=== PATIENT | female | born 1985 | race Asian ===

== ENCOUNTER 2016-03-29 20:26 | Emergency (ER) | payer OTHER ==
[2016-03-29 20:44] VITALS: BMI 23.9
[2016-03-29] MEDS ORDERED: SODIUM CHLORIDE 1,000 ML IV STA (20:55)
[2016-03-29] MEDS ORDERED: ONDANSETRON 4 MG/2 ML VIAL IVPUSH ONE (20:55)
--- NOTE | 2016-03-29 20:55 | PDOC ---
History of Present Illness - History of Present Illness Initial Comments: 03/29/16 21:10 Patient is a 30 year old female with no significant medical hx who is presenting to the ED with two days of fever, chills, hot/cold flashes, nausea, and vomiting since yesterday. Today the patient had a fever of 102.5. She went to her PCP who started the patient on Tamiflu. The patient came to the ED tonight because she is unable to keep anything down. Surgical hx: Appendectomy PCP: Raisa Tellez MD <Dimple Kelly - Last Filed: 03/29/16 21:10> <Angelica Younger - Last Filed: 03/29/16 23:56> - General Chief Complaint: SIRS, Suspected/Possible Stated Complaint: CHEST PAIN/FEVER/VOMITING Time Seen by Provider: 03/29/16 20:45 Past History <Dimple Kelly - Last Filed: 03/29/16 21:10> - Past Medical History Other medical history: high prolactin levels - Psycho/Social/Smoking Cessation Hx Suicidal Ideation: No Smoking History: Never smoked <Angelica Younger - Last Filed: 03/29/16 23:56> - Past Medical History Allergies/Adverse Reactions: Allergies Allergy/AdvReac Type Severity Reaction Status Date / Time No Known Allergies Allergy Verified 03/29/16 20:44 Home Medications: Ambulatory Orders Ondansetron [Zofran Odt -] 4 mg SL TID #12 od.tablet 03/29/16 Review of Systems - Review of Systems Comments:: 03/29/16 21:35 CONSTITUTIONAL: Preset: fever, chills, hot/cold flashes, body aches, diaphoresis Absent: generalized weakness, malaise, loss of appetite HEENT: Absent: rhinorrhea, nasal congestion, throat pain, throat swelling, difficulty swallowing, mouth swelling, ear pain, eye pain, visual changes CARDIOVASCULAR: Absent: chest pain, syncope, palpitations, irregular heart rate, lightheadedness , peripheral edema RESPIRATORY: Present: cough Absent: shortness of breath, dyspnea with exertion, orthopnea, wheezing, stridor , hemoptysis GASTROINTESTINAL: Present: nausea, vomiting Absent: abdominal pain, abdominal distension, diarrhea, constipation, melena, hematochezia GENITOURINARY: Absent: dysuria, frequency, urgency, hesitancy, hematuria, flank pain, genital pain MUSCULOSKELETAL: Absent: myalgia, arthralgia, joint swelling SKIN: Absent: rash, itching, pallor HEMATOLOGIC/IMMUNOLOGIC: Absent: easy bleeding, easy bruising, lymphadenopathy, frequent infections ENDOCRINE: Absent: unexplained weight gain, unexplained weight loss, heat intolerance, cold intolerance NEUROLOGIC: Absent: headache, focal weakness or paresthesia, dizziness, unsteady gait, seizure, mental status changes, bladder or bowel incontinence. PSYCHIATRIC: Absent: anxiety, depression, suicidal or homicidal ideation, hallucinations <Dimple eKlly - Last Filed: 03/29/16 21:10> *Physical Exam - Vital Signs Last Vital Signs Temp Pulse Resp BP Pulse Ox 99.6 F 114 H 18 106/70 97 03/29/16 20:40 03/29/16 20:40 03/29/16 20:40 03/29/16 20:40 03/29/16 20:40 - Physical Exam Comments: 03/29/16 21:38 GENERAL: Well developed, well nourished. Awake and alert. No acute distress. HEENT: Normocephalic, atraumatic. PERRLA, EOMI. No conjunctival pallor. Sclera are non- icteric. Moist mucous membranes. Oropharynx is clear. NECK: Supple. Full ROM. No JVD. Carotid pulses 2+ and symmetric, without bruits. No thyromegaly. No lymphadenopathy. CARDIOVASCULAR: Tachycardic. No murmurs, rubs, or gallops. Distal pulses are 2+ and symmetric. PULMONARY: No evidence of respiratory distress. Lungs clear to auscultation bilaterally. No wheezing, rales or rhonchi. ABDOMINAL: Soft. Non-tender. Non-distended. No rebound or guarding. No organomegaly. Normoactive bowel sounds. MUSCULOSKELETAL: Normal range of motion at all joints. No bony deformities or tenderness. No CVA tenderness. EXTREMITIES: No cyanosis. No clubbing. No edema. No calf tenderness. SKIN: Warm and dry. Normal capillary refill. No rashes. No jaundice. NEUROLOGICAL: Alert, awake, appropriate. Cranial nerves 2-12 intact. Normal speech. Gait is normal without ataxia. PSYCHIATRIC: Cooperative. Good eye contact. Appropriate mood and affect. <Dimple Kelly - Last Filed: 03/29/16 21:10> - Vital Signs Last Vital Signs Temp Pulse Resp BP Pulse Ox 99.6 F 114 H 18 106/70 97 03/29/16 20:40 03/29/16 20:40 03/29/16 20:40 03/29/16 20:40 03/29/16 20:40 <Angelica Younger - Last Filed: 03/29/16 23:56> ED Treatment Course - LABORATORY CBC & Chemistry Diagram: 03/29/16 21:45 03/29/16 21:00 <Angelica Younger - Last Filed: 03/29/16 23:56> *DC/Admit/Observation/Transfer - Attestations Scribe Attestion: 03/29/16 21:41 Documentation prepared by Dimple Kelly, acting as medical cost consultant for Angelica Younger MD. <Dimple Kelly - Last Filed: 03/29/16 21:10> <Angelica Younger - Last Filed: 03/29/16 23:56> Diagnosis at time of Disposition: Influenza Nausea and vomiting Qualifiers: Vomiting type: unspecified Vomiting Intractability: non-intractable Qualified Code(s): R11.2 - Nausea with vomiting, unspecified - Discharge Dispostion Disposition: HOME Condition at time of disposition: Stable - Prescriptions Prescriptions: Ondansetron [Zofran Odt -] 4 mg SL TID #12 od.tablet - Referrals Referrals: Raisa Tellez MD [Primary Care Provider] - - Patient Instructions Printed Discharge Instructions: DI for Fever (Symptom) -- Adult, DI for Diarrhea and Traveler's Diarrhea -- Adult, DI for Vomiting -- Adult Additional Instructions: please rest take tylenol or motrin for fever,body aches drink water use zofran for vomiting return for worsening symptoms
[2016-03-29] MEDS ORDERED: ONDANSETRON 4 MG/2 ML VIAL ONE (21:04)
[2016-03-29 21:26] VITALS: BP 104/73; PULSE 94; TEMP 99
[2016-03-29 21:49] LABS: ALBUMIN 3.6 g/dl (3.4-5.0); ANION GAP 7 (8-16); BILIRUBIN,TOTAL 0.4 mg/dL (0.2-1.0); CALCIUM 8.2 mg/dL (8.5-10.1); CO2 27 mmol/L (21-32); CREATININE 0.7 mg/dL (0.55-1.02); GLUCOSE,RANDOM 106 mg/dL (74-106); SGOT/AST 27 U/L (15-37); SGPT/ALT 39 U/L (12-78)
[2016-03-29 21:50] LABS: ALK PHOS 58 U/L (45-117)
[2016-03-29 21:58] LABS: BASOPHIL 0.4 % (0-2.0); MCH 27.8 pg (25.7-33.7); MCHC 32.9 g/dl (32.0-36.0); MEAN CELL VOLUME 84.4 fl (80-96); NEUTROPHILS 79.8 % (42.8-82.8); PLATELET COUNT 284 K/MM3 (134-434); RDW 12.7 % (11.6-15.6); WHITE BLOOD COUNT 9.6 K/mm3 (4.0-10.0)
[2016-03-29] MEDS ORDERED: ACETAMINOPHEN 1000 MG/100 ML VIAL (NON FORMULARY) IVPB ONE (21:59)
[2016-03-29] MEDS ORDERED: ACETAMINOPHEN INJECTION 100 ML IVPB ONE (22:01)
[2016-03-29 22:07] LABS: URINE APPEARANCE SLCLOUDY; URINE BILIRUBIN NEGATIVE (NEGATIVE); URINE COLOR LTYELLOW; URINE GLUCOSE (UA) NEGATIVE (NEGATIVE); URINE KETONE NEGATIVE (NEGATIVE); URINE LEUK ESTERASE NEGATIVE (NEGATIVE); URINE NITRITE NEGATIVE (NEGATIVE); URINE PROTEIN NEGATIVE (NEGATIVE); URINE UROBILINOGEN NEGATIVE E.U./dl (0.2-1.0)
[2016-03-29 22:09] LABS: URINE BLOOD 1+ (NEGATIVE)
[2016-03-29 22:10] LABS: URINE BACTERIA FEW /hpf (NONE SEEN); URINE MUCUS FEW; URINE RBC 8 /hpf (0-3); URINE WBC 2 /hpf (3-5)
--- NOTE | 2016-03-30 09:52 | EKG ---
Test Reason : Blood Pressure : / mmHG Vent. Rate : 104 BPM Atrial Rate : 104 BPM P-R Int : 122 ms QRS Dur : 082 ms QT Int : 330 ms P-R-T Axes : 051 090 035 degrees QTc Int : 433 ms SINUS TACHYCARDIA BORDERLINE ECG NO PREVIOUS ECGS AVAILABLE Confirmed by ANSHU YEE MD ([id number]) on 03/30/2016 9:52:26 AM Referred By: Overread By: ANSHU YEE MD
== END 2016-03-30 00:09 | disposition home or self-care (01) ==
LOC: JER 20:26
PROC: 3E033NZ Introduction of Analgesics, Hypnotics, Sedatives into Peripheral Vein, Percutaneous Approach (ICD-10-PCS; principal; 2016-03-29)
PROC: 3E033GC Introduction of Other Therapeutic Substance into Peripheral Vein, Percutaneous Approach (ICD-10-PCS; 2016-03-29)
DX: R11.2 Nausea with vomiting, unspecified (principal)
CPT/HCPCS: 36415; 80053; 81003; 81015; 84703; 85025; 87804; 93005; 93010; 99285-25

== ENCOUNTER 2017-07-02 11:05 | Inpatient (IN) | payer OTHER ==
[2017-07-02 12:23] VITALS: BMI 30.9
[2017-07-02 12:24] LABS: BASO % 0.3 % (0-2.0); EOS % 0.8 % (0-4.5); HEMATOCRIT 31.9 % (32.4-45.2); HEMOGLOBIN 10.6 GM/dL (10.7-15.3); LYMPH % 19.7 % (8-40); MCH 28.2 pg (25.7-33.7); MCHC 33.3 g/dl (32.0-36.0); MEAN CELL VOLUME 84.7 fl (80-96); MEAN PLT VOLUME 8.9 fl (7.5-11.1); NEUT % 70.2 % (42.8-82.8); PLATELET COUNT 251 K/MM3 (134-434); RBC 3.76 M/mm3 (3.60-5.2); RDW 13.9 % (11.6-15.6); WHITE BLOOD COUNT 13.2 K/mm3 (4.0-10.0)
[2017-07-02 12:48] LABS: INR 0.97 (0.82-1.09)
[2017-07-02 12:51] LABS: ACTIVATED PTT 25.8 SECONDS (26.9-34.4)
[2017-07-02 13:02] LABS: ANION GAP 8 (8-16); BLOOD UREA NITROGEN 8 mg/dL (7-18); CALCIUM 8.3 mg/dL (8.5-10.1); CHLORIDE 105 mmol/L (98-107); CO2 22 mmol/L (21-32); GLUCOSE,RANDOM 71 mg/dL (74-106); POTASSIUM 4.2 mmol/L (3.5-5.1); SODIUM 135 mmol/L (136-145)
[2017-07-02 13:05] LABS: CREATININE 0.4 mg/dL (0.55-1.02)
[2017-07-02] MEDS ORDERED: AMPICILLIN SODIUM 2 GM VIAL ONE (13:59)
[2017-07-02] MEDS: ELECTROLYTE-148 SOLN 1,000 ML IV SCH (14:25)
[2017-07-02] MEDS ORDERED: OXYTOCIN 30 UNITS in 0.9% NS 30 UNIT/500 ML INFUS.BAG IVPB ONE (14:38)
[2017-07-02] MEDS ORDERED: AMPICILLIN - 2 GM in SODIUM CHLORIDE 100 ML IVPB ONE (14:45)
--- NOTE | 2017-07-02 14:54 | HP ---
Past Medical History - Primary Care Physician PCP:: Susanna Caro - Admission Chief Complaint: 31yo P0 @ 39.3wks with +ctx, no VB, no LOF, + FM History of Present Illness: 1. GBS positive for Antibiotics in active labor 2. Anemia - dilutional of 3. Low Vitamin D on supplement 4. 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 Resolved low-lying placenta 6. h/o abnormal PAP History Source: Patient, Medical Record Limitations to Obtaining History: No Limitations - Past Medical History ...: 1 ...Para: 0 ...Term: 0 ...: 0 ...Spon : 0 ...Induced : 0 ...Multiple Gestation: 0 ...EDC by Sono: 07/06/17 Heme/Onc: Yes: Anemia Endocrine: Yes: Other (Prolactinoma - neg MRI) - Past Surgical History Past Surgical History: Yes: None Hx Myomectomy: No Hx Transabdominal Cerclage: No - Smoking History Smoking history: Never smoked Have you smoked in the past 12 months: No - Alcohol/Substance Use Hx Alcohol Use: No History of Substance Use: reports: None - Social History History of Recent Travel: No Home Medications - Allergies Allergies/Adverse Reactions: Allergies Allergy/AdvReac Type Severity Reaction Status Date / Time No Known Allergies Allergy Verified 07/02/17 11:31 - Home Medications Home Medications: Ambulatory Orders Cholecalciferol (Vitamin D3) [Vitamin D] 2,000 unit PO DAILY 06/29/17 Vitamins (Sjr) - 1 tab PO DAILY 06/29/17 Family Disease History - Family Disease History Family Disease History: Diabetes: Father, Mother Review of Systems - Review of Systems Constitutional: reports: No Symptoms Eyes: reports: No Symptoms HENT: reports: No Symptoms Neck: reports: No Symptoms Cardiovascular: reports: No Symptoms Respiratory: reports: No Symptoms Gastrointestinal: reports: No Symptoms Genitourinary: reports: No Symptoms Breasts: reports: No Symptoms Reported Musculoskeletal: reports: No Symptoms Integumentary: reports: No Symptoms Neurological: reports: No Symptoms Endocrine: reports: No Symptoms Hematology/Lymphatic: reports: No Symptoms Psychiatric: reports: No Symptoms Physical Exam - Maternity Vital Signs: Vital Signs Temperature 98.2 F 07/02/17 14:00 Pulse Rate 119 H 07/02/17 14:00 Respiratory Rate 20 07/02/17 14:00 Blood Pressure 115/76 07/02/17 14:00 O2 Sat by Pulse Oximetry (%) Constitutional: Yes: Well Nourished, No Distress, Calm Eyes: Yes: WNL HENT: Yes: WNL Neck: Yes: WNL, Supple Cardiovascular: Yes: WNL, Regular Rate and Rhythm Lungs: Clear to auscultation Breast(s): Yes: WNL - Abdominal Exam/OB Fundal Height: 39 Number of Fetuses: Single Presentation: Vertex Contractions: Yes Regularity: Regular (Q 3-4min) Intensity: Mild/Mod Heart Rate (range): 130's +accels, no decells, Category 1 Heart Rate Location: Midline Category: I Accelerations: Uniform Decelerations: None - Vaginal Exam/OB Vaginal Bleediing: No, Bloody Show Speculum Exam: No Dilatation (cm): 3-4 Effacement (%): 75% Amniotic Membrane Status: Intact Presentation: Vertex/Position Station: -3 - Physical Exam Musculoskeletal: Yes: WNL Extremities: Yes: WNL Edema: No Integumentary: Yes: WNL Deep Tendon Reflex Grade: Normal +2 ...Motor Strength: WNL Psychiatric: Yes: WNL, Alert, Oriented - Labs Lab Results: CBC, BMP 07/02/17 11:45 07/02/17 11:45 Assessment/Plan 31yo P0 @ 39.3wks in early labor Admit to L&D for augmentation of labor IVF, Labs Ampicillin for GBS prophylaxis Pain management discussed for Stadol/Phenergan in early labor and for Epidural in active labor
[2017-07-02] MEDS ORDERED: OXYTOCIN 15 UNITS/ LR 250 ML 15 UNIT/250 ML INFUS.BAG IVPB SCH (15:00)
[2017-07-02] MEDS ORDERED: OXYTOCIN 30 UNITS in 0.9% NS 30 UNIT/500 ML INFUS.BAG IVPB SCH (15:15)
[2017-07-02] MEDS ORDERED: AMPICILLIN SODIUM 1 GM VIAL ONE ×2 (17:56→21:54)
[2017-07-02] MEDS: AMPICILLIN - 1 GM in SODIUM CHLORIDE 100 ML IVPB SCH ×2 (18:03→22:00)
[2017-07-02] MEDS ORDERED: PROMETHAZINE HCL 25 MG/1 ML VIAL ONE (23:38)
[2017-07-02] MEDS ORDERED: BUTORPHANOL TARTRATE 1 MG/ML VIAL ONE ×2 (23:38)
--- NOTE | 2017-07-02 23:40 | PN ---
Progress Note, Labor Vaginal Exam #1 Labor Exam Date: 07/03/17 Labor Exam Time: 23:30 Heart Rate (range): 140 Dilatation: 4cm Effacement (%): 80 Amniotic Membrane Status: Intact Presentation: Vertex/Position Station: -3 (31yo P0 @ 39.3 in early labor Category 1 FHR MF status reasuring Recommended to take Stadol for pain managment continue Pitocin augmentation)
[2017-07-03] MEDS ORDERED: BUTORPHANOL TARTRATE 1 MG/ML VIAL IVPUSH ONE (00:15)
[2017-07-03] MEDS ORDERED: PROMETHAZINE HCL 25 MG/1 ML VIAL IVPUSH ONE (00:15)
[2017-07-03] MEDS ORDERED: AMPICILLIN SODIUM 1 GM VIAL ONE ×2 (01:32→05:02)
[2017-07-03] MEDS ORDERED: FENTANYL/BUPIVACAINE/NS/PF - PCEA - 50 ML DISP.SYRIN EP ONE (01:32)
[2017-07-03] MEDS: AMPICILLIN - 1 GM in SODIUM CHLORIDE 100 ML IVPB SCH ×4 (02:00→16:15)
[2017-07-03] MEDS ORDERED: NALOXONE HCL 0.4 MG/ML VIAL IVPUSH PRN (02:07)
[2017-07-03] MEDS ORDERED: FENTANYL/BUPIVACAINE/NS/PF - PCEA - 50 ML DISP.SYRIN EP SCH (02:15)
[2017-07-03] MEDS ORDERED: OXYTOCIN 20 UNITS in 0.9% NS 40 UNIT/2,000 ML INFUS.BAG IV ONE (06:55)
[2017-07-03] MEDS ORDERED: LIDOCAINE HCL 1% PRESERVATIVE FREE - 30ML VIAL ONE (07:22)
[2017-07-03] MEDS: OXYTOCIN 20 UNITS in 0.9% NS 20 UNIT/1,000 ML INFUS.BAG IV SCH ×2 (07:25→09:23)
[2017-07-03] MEDS ORDERED: BISACODYL 10 MG SUPP.RECT RC PRN (08:09)
[2017-07-03] MEDS ORDERED: IBUPROFEN 600 MG TABLET (FP) PO PRN (08:09)
[2017-07-03] MEDS ORDERED: METHYLERGONOVINE MALEATE 0.2 MG/1 ML AMP IM PRN (08:09)
[2017-07-03] MEDS ORDERED: BENZOCAINE 28 GM HEMORRHOIDAL OINTMENT TP PRN (08:09)
--- NOTE | 2017-07-03 08:09 | PN ---
Delivery - Delivery Vaginal Delivery: No Problems Type of Anesthesia: Local, Epidural Episiotomy/Laceration: Perineal Extension/lac, 1st degree EBL (cc): 300 Delivery, Single - Stages of Labor Date 1st Stage Initiatied: 07/03/17 Time 1st Stage Initiated: 01:00 Date 2nd Stage Initiated: 07/03/17 Time 2nd Stage Initiated: 06:35 Date of Delivery: 07/03/17 Time of Delivery: 07:22 Date Placenta Delivered: 07/03/17 Time Placenta Delivered: 07:25 Placenta: Yes: Spontaneous - Condition of Infant Unemployment Examiner/Audio Narrator Present: No Gender: Female Position: OA (Cord around the neck x 1) - 1 Minute Total Score: 9 5 Minutes Total Score: 9 - Feeding Plan Initial Plan: Exclusive throughout hospitalization Benefits of Exclusively reinforced: Yes Remarks - Remarks Remarks: Uncomplicated delivery of head and shoulders Cord recused without difficulty
[2017-07-03] MEDS ORDERED: D5W-LR W/ 20 UNITS OXYTOCIN 1,000 ML IV SCH (08:15)
[2017-07-03] MEDS ORDERED: ACETAMINOPHEN 325 MG TABLET (FP) PO PRN (08:18)
[2017-07-03] MEDS: FERROUS SO4 325 MG TABLET (FP) PO SCH ×2 (10:58→21:07)
[2017-07-03] MEDS: IBUPROFEN 100 MG/5 ML UNIT DOSE CUPS PO PRN ×2 (10:58→20:54)
[2017-07-03] MEDS: ACETAMINOPHEN 650 MG/20.3 ML ORAL SOLUTION (CUPS) PO PRN ×2 (10:58→20:53)
[2017-07-03] MEDS: PRENATAL VITAMINS W/ FOLIC ACID TABLET (FP) PO SCH (11:03)
[2017-07-04] MEDS: ACETAMINOPHEN 650 MG/20.3 ML ORAL SOLUTION (CUPS) PO PRN ×3 (06:00→21:43)
--- NOTE | 2017-07-04 08:10 | PN ---
Post Progress Note Post Day: 1 Type of Delivery: Vital Signs: Vital Signs Temperature 97.9 F 07/04/17 07:39 Pulse Rate 88 07/04/17 07:39 Respiratory Rate 18 07/04/17 07:39 Blood Pressure 93/62 07/04/17 07:39 O2 Sat by Pulse Oximetry (%) 100 07/03/17 08:47 Breast Exam: Yes: Soft Uterus: Yes: Fundus Firm, Fundus above umbilicus Abdomen/GI: Yes: Abdomen soft Lochia: Yes: Rubra Lochia, amount: Small Extremities: Yes: Calves non-tender Perineum: Yes: Intact Activity: Ambulating - Labs Labs: CBC WBC 13.2 K/mm3 (4.0-10.0) H D 07/02/17 11:45 RBC 3.76 M/mm3 (3.60-5.2) 07/02/17 11:45 Hgb 10.6 GM/dL (10.7-15.3) L D 07/02/17 11:45 Hct 31.9 % (32.4-45.2) L 07/02/17 11:45 MCV 84.7 fl (80-96) 07/02/17 11:45 MCH 28.2 pg (25.7-33.7) 07/02/17 11:45 MCHC 33.3 g/dl (32.0-36.0) 07/02/17 11:45 RDW 13.9 % (11.6-15.6) 07/02/17 11:45 Plt Count 251 K/MM3 (134-434) 07/02/17 11:45 MPV 8.9 fl (7.5-11.1) 07/02/17 11:45 Neutrophils % 70.2 % (42.8-82.8) 07/02/17 11:45 Lymphocytes % 19.7 % (8-40) D 07/02/17 11:45 Monocytes % 9.0 % (3.8-10.2) 07/02/17 11:45 Eosinophils % 0.8 % (0-4.5) D 07/02/17 11:45 Basophils % 0.3 % (0-2.0) 07/02/17 11:45 Assessment/Plan 31yo P1 now s/p Doing well VSS, Afebrile Dulcolax suppository for constipation Encourage OOB cont routine PNC
[2017-07-04 08:23] LABS: BASO % 0.4 % (0-2.0); EOS % 0.9 % (0-4.5); HEMATOCRIT 29.9 % (32.4-45.2); HEMOGLOBIN 9.9 GM/dL (10.7-15.3); LYMPH % 15.8 % (8-40); MCH 28.2 pg (25.7-33.7); MCHC 33.1 g/dl (32.0-36.0); MEAN CELL VOLUME 85.3 fl (80-96); MONO % 10.7 % (3.8-10.2); NEUT % 72.2 % (42.8-82.8); PLATELET COUNT 236 K/MM3 (134-434); RBC 3.51 M/mm3 (3.60-5.2); RDW 14.3 % (11.6-15.6); WHITE BLOOD COUNT 16.7 K/mm3 (4.0-10.0)
[2017-07-04] MEDS: OXYTOCIN 20 UNITS in 0.9% NS 20 UNIT/1,000 ML INFUS.BAG IV SCH (09:14)
[2017-07-04] MEDS: PRENATAL VITAMINS W/ FOLIC ACID TABLET (FP) PO SCH (09:15)
[2017-07-04] MEDS: FERROUS SO4 325 MG TABLET (FP) PO SCH ×2 (09:15→22:00)
[2017-07-04] MEDS: ELECTROLYTE-148 SOLN 1,000 ML IV SCH (17:02)
[2017-07-04] MEDS: IBUPROFEN 100 MG/5 ML UNIT DOSE CUPS PO PRN (21:48)
[2017-07-04] MEDS ORDERED: SENNOSIDES/DOCUSATE COMBO (SENNA PLUS) TABLET (UD) PO PRN (22:00)
[2017-07-04] MEDS: BENZOCAINE 20% 57 GM BOTTLE TP PRN (23:11)
[2017-07-04] MEDS: WITCH HAZEL 50% (TUCKS) 40 PAD/JAR PAD TP PRN (23:11)
[2017-07-05] MEDS: ACETAMINOPHEN 650 MG/20.3 ML ORAL SOLUTION (CUPS) PO PRN (05:40)
[2017-07-05] MEDS: IBUPROFEN 100 MG/5 ML UNIT DOSE CUPS PO PRN (05:41)
[2017-07-05] MEDS: PRENATAL VITAMINS W/ FOLIC ACID TABLET (FP) PO SCH (10:12)
[2017-07-05] MEDS: FERROUS SO4 325 MG TABLET (FP) PO SCH (10:12)
[2017-07-05] MEDS: BENZOCAINE 20% 57 GM BOTTLE TP PRN (10:23)
[2017-07-05] MEDS: WITCH HAZEL 50% (TUCKS) 40 PAD/JAR PAD TP PRN (10:23)
[2017-07-05 11:27] VITALS: BP 108/75; PULSE 76; TEMP 98.8
--- NOTE | 2017-07-05 12:41 | DS ---
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 Vital Signs: Vital Signs Temperature 98.8 F 07/05/17 10:00 Pulse Rate 76 07/05/17 10:00 Respiratory Rate 18 07/05/17 10:00 Blood Pressure 108/75 07/05/17 10:00 O2 Sat by Pulse Oximetry (%) 100 07/03/17 08:47 Constitutional: Yes: Well Nourished Eyes: Yes: WNL HENT: Yes: WNL, Atraumatic, Normocephalic Neck: Yes: WNL, Supple, Trachea Midline Cardiovascular: Yes: WNL, Regular Rate and Rhythm Respiratory: Yes: WNL, Regular, CTA Bilaterally Gastrointestinal: Yes: WNL, Normal Bowel Sounds, Soft Renal/: Yes: WNL Pelvis: Yes: WNL External Genitalia: Yes: Normal Vaginal Exam: Yes: Normal ....Post : Yes: Uterus firm, Uterus non-tender Breast(s): Yes: WNL Musculoskeletal: Yes: WNL Extremities: Yes: WNL Integumentary: Yes: WNL Neurological: Yes: WNL, Alert, Oriented ...Motor Strength: WNL Psychiatric: Yes: WNL, Alert, Oriented Labs: CBC, BMP 07/04/17 07:15 07/02/17 11:45 Delivery - Delivery Vaginal Delivery: No Problems Type of Anesthesia: Local, Epidural Episiotomy/Laceration: Perineal Extension/lac, 1st degree EBL (cc): 300 Delivery, Single - Stages of Labor Date 1st Stage Initiatied: 07/03/17 Time 1st Stage Initiated: 01:00 Date 2nd Stage Initiated: 07/03/17 Time 2nd Stage Initiated: 06:35 Date of Delivery: 07/03/17 Time of Delivery: 07:22 Time Placenta Delivered: 07:25 Placenta: Yes: Spontaneous - Condition of Senior Product Marketing Manager/Assistant Professor Of Spanish Present: No Gender: Female Weight: 7 lb 13 oz Position: OA (Cord around the neck x 1) Total Hours ROM (Hrs/Mins): 0hrs 50 min - 1 Minute Total Score: 9 5 Minutes Total Score: 9 - [place] Feeding Plan Initial Plan: Exclusive throughout hospitalization Benefits of Exclusively reinforced: Yes Remarks - Remarks Remarks: 31yo P1 now s/p VSS, Afebrile D/C home NPV for 6wks RTO 4-6 wks Discharge Summary Reason For Visit: LABOR - Instructions Diet, Activity, Other Instructions: call and schedule appointment for exam 4-6 weeks for exam. if severe pain bleeding or fever call md. Referrals: Susanna Caro MD [Staff Physician] - - Home Medications Comprehensive Discharge Medication List: Ambulatory Orders Cholecalciferol (Vitamin D3) [Vitamin D] 2,000 unit PO DAILY 06/29/17 Vitamins (Sjr) - 1 tab PO DAILY 06/29/17
== END 2017-07-05 13:35 | disposition home or self-care (01) | DRG 775 ==
LOC: JDEL 11:05 → JLDR 11:35 → J3W 07-03 09:40
PROVIDERS: ADMIT Obstetrics & Gynecology; ATTEND Obstetrics & Gynecology
PROC: 10E0XZZ Delivery of Products of Conception, External Approach (ICD-10-PCS; principal; 2017-07-03)
PROC: 0HQ9XZZ Repair Perineum Skin, External Approach (ICD-10-PCS; 2017-07-03)
DX: O69.81X0 Labor and delivery complicated by cord around neck, without compression, not applicable or unspecified (principal); O70.0 First degree perineal laceration during delivery; O99.824 Streptococcus B carrier state complicating childbirth; O99.02 Anemia complicating childbirth; Z3A.39 39 weeks gestation of pregnancy; Z37.0 Single live birth
CPT/HCPCS: 36415; 59409; 80048; 85025; 85610; 85730; 86593; 86850; 86900; 86901

== ENCOUNTER 2020-05-17 22:38 | Inpatient (IN) | payer OTHER ==
[2020-05-18] MEDS ORDERED: OXYTOCIN 20 UNITS in 0.9% NS 20 UNIT/1,000 ML INFUS.BAG IV ONE ×2 (00:19→02:52)
[2020-05-18] MEDS ORDERED: OXYTOCIN 10 UNITS/ML VIAL ONE (00:26)
[2020-05-18] MEDS: OXYTOCIN 20 UNITS in 0.9% NS 20 UNIT/1,000 ML INFUS.BAG IV SCH ×2 (00:41→03:05)
[2020-05-18] MEDS ORDERED: BISACODYL 10 MG SUPP.RECT RC PRN (00:52)
[2020-05-18] MEDS ORDERED: BENZOCAINE 28 GM HEMORRHOIDAL OINTMENT TP PRN (00:52)
[2020-05-18] MEDS ORDERED: ACETAMINOPHEN 325 MG TABLET (FP) PO PRN (00:52)
[2020-05-18] MEDS ORDERED: IBUPROFEN 600 MG TABLET (FP) PO PRN (00:52)
[2020-05-18] MEDS ORDERED: WITCH HAZEL 50% (TUCKS) 40 PAD/JAR PAD TP PRN (00:52)
[2020-05-18] MEDS ORDERED: METHYLERGONOVINE MALEATE 0.2 MG/1 ML AMP IM PRN (00:52)
[2020-05-18] MEDS ORDERED: BENZOCAINE 20% 57 GM BOTTLE TP PRN (00:52)
[2020-05-18] MEDS ORDERED: DEXTROSE 5%-LACTATED RINGERS 1,000 ML IV SCH (01:00)
[2020-05-18] MEDS ORDERED: ACETAMINOPHEN 1000 MG/100 ML VIAL (NON FORMULARY) IVPB ONE (01:00)
[2020-05-18] MEDS ORDERED: ACETAMINOPHEN INJECTION 100 ML IVPB ONE (01:05)
[2020-05-18 01:16] LABS: CORD PCO2 51.9 mmHg (30-78); CORD pH 7.318 (7.14-7.44)
[2020-05-18 01:18] LABS: CORD BASE EXCESS -0.8 mmol/L (0-2); CORD PCO2 36.1 mmHg (30-78); CORD pH 7.423 (7.14-7.44)
[2020-05-18 01:47] LABS: BASO % 0.4 % (0-2.0); EOS % 0.3 % (0-4.5); HEMATOCRIT 31.7 % (32.4-45.2); HEMOGLOBIN 10.4 GM/dL (10.7-15.3); LYMPH % 14.1 % (8-40); MCHC 32.7 g/dl (32.0-36.0); MEAN CELL VOLUME 82.5 fl (80-96); MEAN PLT VOLUME 9.6 fl (7.5-11.1); MONO % 6.9 % (3.8-10.2); NEUT % 78.3 % (42.8-82.8); PLATELET COUNT 235 K/MM3 (134-434); RBC 3.84 M/mm3 (3.60-5.2); RDW 14.8 % (11.6-15.6); WHITE BLOOD COUNT 13.4 K/mm3 (4.0-10.0)
[2020-05-18 01:54] LABS: INR 0.95 (0.83-1.09); PROTHROMBIN TIME (PATIENT) 11.7 SEC (9.7-13.0)
[2020-05-18 01:57] LABS: ACTIVATED PTT 25.4 SECONDS (25.2-36.5)
[2020-05-18 02:14] LABS: CALCIUM 8.4 mg/dL (8.5-10.1)
[2020-05-18 02:15] LABS: BLOOD UREA NITROGEN 9.9 mg/dL (7-18)
[2020-05-18 02:19] LABS: CREATININE 0.6 mg/dL (0.55-1.3)
[2020-05-18 02:24] LABS: POTASSIUM 4.3 mmol/L (3.5-5.1)
[2020-05-18] MEDS ORDERED: IBUPROFEN 100 MG/5 ML UNIT DOSE CUPS PO PRN (06:13)
[2020-05-18] MEDS: ACETAMINOPHEN 650 MG/20.3 ML ORAL SOLUTION (CUPS) PO PRN ×4 (06:28→21:40)
[2020-05-18] MEDS: IBUPROFEN 100 MG/5 ML UNIT DOSE CUPS PO PRN ×4 (06:39→21:41)
[2020-05-18] MEDS: PRENATAL VITAMINS W/ FOLIC ACID TABLET (FP) PO SCH (09:23)
[2020-05-19] MEDS: ACETAMINOPHEN 650 MG/20.3 ML ORAL SOLUTION (CUPS) PO PRN ×3 (05:20→20:19)
[2020-05-19] MEDS: IBUPROFEN 100 MG/5 ML UNIT DOSE CUPS PO PRN ×3 (05:21→20:20)
[2020-05-19 09:24] LABS: BASO % 0.4 % (0-2.0); EOS % 2.6 % (0-4.5); HEMATOCRIT 31.1 % (32.4-45.2); HEMOGLOBIN 10.3 GM/dL (10.7-15.3); MCH 27.3 pg (25.7-33.7); MCHC 33.2 g/dl (32.0-36.0); MEAN CELL VOLUME 82.2 fl (80-96); MEAN PLT VOLUME 9.6 fl (7.5-11.1); MONO % 7.1 % (3.8-10.2); NEUT % 68.9 % (42.8-82.8); PLATELET COUNT 254 K/MM3 (134-434); RBC 3.79 M/mm3 (3.60-5.2); RDW 14.8 % (11.6-15.6)
[2020-05-19] MEDS: PRENATAL VITAMINS W/ FOLIC ACID TABLET (FP) PO SCH (10:45)
[2020-05-19] MEDS ORDERED: SENNOSIDES/DOCUSATE COMBO (SENNA PLUS) TABLET (UD) PO PRN (22:00)
[2020-05-20] MEDS: IBUPROFEN 100 MG/5 ML UNIT DOSE CUPS PO PRN ×2 (03:28→09:10)
[2020-05-20] MEDS: ACETAMINOPHEN 650 MG/20.3 ML ORAL SOLUTION (CUPS) PO PRN ×2 (03:29→09:10)
[2020-05-20 07:50] LABS: POC NITRAZINE NEG
[2020-05-20] MEDS: PRENATAL VITAMINS W/ FOLIC ACID TABLET (FP) PO SCH (09:11)
[2020-05-20 09:24] VITALS: BP 113/69; PULSE 82; TEMP 98.1
== END 2020-05-20 15:00 | disposition home or self-care (01) | DRG 807 ==
LOC: JDEL 22:38 → JLDR 23:43 → J3W 05-18 03:05
PROVIDERS: ADMIT Obstetrics & Gynecology; ATTEND Obstetrics & Gynecology
PROC: 10E0XZZ Delivery of Products of Conception, External Approach (ICD-10-PCS; principal; 2020-05-18)
DX: O69.81X0 Labor and delivery complicated by cord around neck, without compression, not applicable or unspecified (principal); Z37.0 Single live birth; O70.0 First degree perineal laceration during delivery; O99.02 Anemia complicating childbirth; D64.9 Anemia, unspecified; Z3A.39 39 weeks gestation of pregnancy
CPT/HCPCS: 36415; 36600; 59409; 80048; 82803; 83986-QW; 85025; 85610; 85730; 86780; 86850; 86900; 86901; C9803; J0131; U0003

== ENCOUNTER 2020-07-10 20:25 | Emergency (ER) | payer OTHER ==
[2020-07-10 20:36] VITALS: BP 108/54; PULSE 80; TEMP 98.7; BMI 32.2
== END 2020-07-10 23:42 | disposition home or self-care (01) ==
LOC: FER 20:25
DX: I82.611 Acute embolism and thrombosis of superficial veins of right upper extremity (principal)
CPT/HCPCS: 93971; 99284-25